=== PATIENT | male | born 1960 | race Caucasian/White ===

== ENCOUNTER 2025-01-16 07:36 | Day surgery (SDC) | payer OTHER, SELFPAY ==
[2025-01-16] VITALS (7 sets, daily range): BP systolic 98–116; BP diastolic 64–82; PULSE 16–65; RESP 16; TEMP 36.5–36.7; O2SAT 94–100; BMI 27.7
--- NOTE | 2025-01-16 08:05 | PCM.PRE.AN2 ---
ASA Classification* ASA Classification ASA Classification: 2 Assessment & Plan Anesthesia* Anesthesia Assessment Anesthesia Assessment: Discussed sedation and/or anesthesia options, risks, benefits, and alternatives with patient/parents/legal guardian/POA. Questions invited. The patient/parents/legal guardian/POA seems to understand and agrees to proceed with anesthesia plan. Reviewed the physical assessment, medical history, allergy history and patient home medications list prior to surgery/procedure/anesthetic and documented any changes. Performed airway and anesthesia risk assessments. 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 When Was Last Pacemaker Check QUESTION #4 FULL TEXT: You/Your Family Experience fever (hyperthermia) with Anesthesia Last Oral Intake Last Oral intake: Last Oral Intake NPO since Meds taken in AM with sips of water? Meds patient instructed to take am of surgery PONV PONV - wood casket assembler: PONV - wood casket assembler Female No 01/13/25 16:45 HX of Motion Sickness No 01/13/25 16:45 HX of N/V After Surgery No 01/13/25 16:45 Non-Smoker Yes 01/13/25 16:45 Duration of Surgery greater No 01/13/25 16:45 than 60 minutes Number of Risk Factors 1 01/13/25 16:45 PONV Score Low Risk 01/13/25 16:45 Respiratory Assessment Respiratory Assessment - wood casket assembler: Respiratory Tract Infection Hx - wood casket assembler Hx Respiratory Tract Infection No 01/13/25 16:45 STOP Sleep Apnea STOP Sleep Apnea - wood casket assembler: STOP Sleep Apnea - wood casket assembler Hx Hypertension Yes: PER PT, CONTROLLED ON 01/13/25 16:45 MEDS Hx Sleep Apnea No 01/13/25 16:45 CPAP BIPAP Do you snore loudly (louder No 01/13/25 16:45 than talking or can be heard Do you often feel tired/ No 01/13/25 16:45 fatigued/ sleepy during daytime? Has anyone observed you stop No 01/13/25 16:45 breathing during sleep? STOP Results Negative 01/13/25 16:45 QUESTION #5 FULL TEXT : Do you snore loudly (louder than talking or can be heard through closed doors)? 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 Specify any problems Hx of Preganancy in last 3 N/A 01/13/25 16:45 Months Nurse Filling Out Transfusion MGRIFFITH 01/13/25 16:45 & Questions: Date: 01/13/25 01/13/25 16:45 Time: 16:47 01/13/25 16:45 Patient unable to answer at this time (ie. confused, unrespo /Reproduction History /Reproductive History - wood casket assembler: /Reproductive Hx- wood casket assembler Hx Now Gestational Age (in weeks): EDC: Hx Hx Para Hx Section SAB Active Medications Active Medications: Current Medications Generic Name Dose Route Start Last Admin Trade Name Freq PRN Reason Stop Dose Admin Lactated Ringer's 1,000 mls @ 15 mls/hr 01/16/25 08:15 IV .Q48H SERENITY PFSH Medical History Wears glasses Heartburn Non-smoker Hypertension Home Medications ?Medication ?Instructions ?Recorded ?Last Taken ?Type amlodipine 10 mg tablet 10 mg PO DAILY 01/13/25 01/15/25 History lisinopril 40 mg tablet 40 mg PO DAILY 01/13/25 01/15/25 History spironolactone 25 mg tablet 25 mg PO DAILY 01/13/25 01/15/25 History Allergy/AdvReac Type Severity Reaction Status Date / Time No Known Allergies Allergy Verified 01/16/25 07:59 Surgical History History of eye surgery History of inguinal hernia repair Social History Smoking Status: Never smoker Review of Systems (Anesthesia) ROS Narrative System reviewed and no additional complaints, except as documented.
[2025-01-16] MEDS: Lactated Ringers 1,000 ML 15 ML IV (08:07)
--- NOTE | 2025-01-16 09:07 | H&P.OPEN ---
HPI - General HPI Narrative KIRIT COMER, is a 64 M who presents for screening colonoscopy. Patient has never had a colonoscopy in the past. He denies abdominal pain or blood in the stool. No family history of colon cancer. PFSH Medical History Wears glasses Heartburn Non-smoker Hypertension Home Medications ?Medication ?Instructions ?Recorded ?Last Taken ?Type amlodipine 10 mg tablet 10 mg PO DAILY 01/13/25 01/15/25 History lisinopril 40 mg tablet 40 mg PO DAILY 01/13/25 01/15/25 History spironolactone 25 mg tablet 25 mg PO DAILY 01/13/25 01/15/25 History Allergy/AdvReac Type Severity Reaction Status Date / Time No Known Allergies Allergy Verified 01/16/25 07:59 Surgical History History of eye surgery History of inguinal hernia repair Social History Smoking Status: Never smoker Past Medical/Surgical History Planned Operation Planned Operative Procedure(s): COLONOSCOPY Previous Hospitalizations/Surgeries HX Hospitalizations: No Any Problems With Anesthesia: No You/Your Family Experience Fever (Hyperthermia) With Anes: No Cholinesterase deficiency: No Cardiovascular Hx Hypertension: Yes (PER PT, CONTROLLED ON MEDS) Respiratory Hx Sleep Apnea: No Hx Respiratory Tract Infection/Cold (presently): No Do You Snore Loudly (louder than talking or can be heard): No Do You Often Feel Tired/ Fatigued/ Sleepy Dring Daytime?: No Has Anyone Observed You Stop Breathing During Sleep?: No Result (for STOP score): Negative Smoking Status: Never smoker Neurological Does patient have nerve stimulator: No Miscellaneous Recent Exposure to Contagious Disease: No Allergies No Known Allergies Allergy (Verified 01/16/25 07:59) Discharge Is Pt Admitted From a Long Term, or a Custodial: No Who Could Help: After D/C, Where Do you Plan to Go: Return Home Vital Signs Vital Signs Vital Signs: 01/16/25 08:03 01/16/25 08:03 Temperature 98.1 F Temperature Source Temporal Pulse Rate 58 L Respiratory Rate 16 Respiratory Pattern Normal Blood Pressure 116/82 H Blood Pressure Mean 93 Blood Pressure Source Monitor Blood Pressure Position Semi-Fowlers Blood Pressure Location Right Arm Pulse Ox 100 Oxygen Delivery Method Room Air Weight Weight: 171 lb 11.841 oz Body Mass Index (BMI) 27.7 Physical Exam Const alert and oriented x3 HEENT normocephalic Eyes PERRL Resp normal respiratory effort and normal air movement Cardio regular rate and regular rhythm GI soft to palpation, non-tender and non-distended Extremity normal to inspection Assessment & Plan Assessment/Plan (1) Screen for colon cancer: PLAN: I explained endoscopy in detail to the patient. I explained the risks including but not limited to stroke or heart attack with anesthesia, perforation of the GI tract, bleeding, infection. I explained that any of these could necessitate further emergency surgery. The patient understands and all questions were answered sufficiently. The patient wishes to proceed with procedure. Zheng Mayfield MD Pager: [facility] [address] [place] [address], [address] [place] [address] Office: Surgery Risks - Colonoscopy Risks Include but are not Limited To: Risks include but are not limited to: Bleeding, perforation requiring further surgery, inability to complete colonoscopy requiring barium enema.
[2025-01-16] MEDS: Lidocaine 1% (5 ml sdv) 5 ML Vial 10 ML IV (09:15)
--- NOTE | 2025-01-16 09:31 | OP.PROVAT_ITS ---
01/16/2025 Trinidad Bernard Md Re : Colonoscopy procedure for Miguel Angel Zavalar Marco Antonio This procedure was performed on Thursday, January 16, 2025. My impressions and recommendations are as follows: Impressions : - The entire examined colon is normal on direct and retroflexion views. - No specimens collected. Recommendations : - Discharge patient to home. - Resume previous diet. - Continue present medications. - Repeat colonoscopy in 10 years for screening purposes. My findings are described in the full procedure note, which is enclosed. If I can be of further assistance, please feel free to contact me at Doctor phone number(s): , Work: . Sincerely, Zheng Mayfield MD 01/16/2025 9:30:19 AM This report has been signed electronically.
--- NOTE | 2025-01-16 09:31 | OP.COLON_ITS ---
Patient Name: Miguel Angel Henderson Procedure Date: 01/16/2025 9:02 AM Date of : 1960 Age: 64 Procedure: Colonoscopy Indications: Screening for colorectal malignant neoplasm Providers: Zheng Mayfield MD Referring MD: Trinidad Bernard Md Medicines: Propofol per Anesthesia Patient Profile: This is a 64 year old male. Refer to note in patient chart for documentation of history and physical. Last Colonoscopy: none. The patient's first colonoscopy is today. Complications: No immediate complications. Procedure: Pre-Anesthesia Assessment: - Prior to the procedure, a History and Physical was performed, and patient medications and allergies were reviewed. The patient's tolerance of previous anesthesia was also reviewed. The risks and benefits of the procedure and the sedation options and risks were discussed with the patient. All questions were answered, and informed consent was obtained. Prior Anticoagulants: The patient has taken no anticoagulant or antiplatelet agents. After reviewing the risks and benefits, the patient was deemed in satisfactory condition to undergo the procedure. After I obtained informed consent, the scope was passed under direct vision. Throughout the procedure, the patient's blood pressure, pulse, and oxygen saturations were monitored continuously. The pediatric colonoscope was introduced through the anus and advanced to the cecum, identified by appendiceal orifice and ileocecal valve. The colonoscopy was performed without difficulty. The patient tolerated the procedure well. The quality of the bowel preparation was good. The ileocecal valve, appendiceal orifice, and rectum were photographed. Scope In: 9:18:00 AM Scope Withdrawal Time 0 hours 6 minutes 30 seconds Scope Out: 9:28:28 AM Total Procedure Duration Time 0 hours 10 minutes 28 seconds Findings: The entire examined colon appeared normal on direct and retroflexion views. Impression: - The entire examined colon is normal on direct and retroflexion views. - No specimens collected. Recommendation: - Discharge patient to home. - Resume previous diet. - Continue present medications. - Repeat colonoscopy in 10 years for screening purposes. Procedure Code(s): --- Professional --- 85173, Colonoscopy, flexible; diagnostic, including collection of specimen(s) by brushing or washing, when performed (separate procedure) Diagnosis Code(s): --- Professional --- Z12.11, Encounter for screening for malignant neoplasm of colon CPT copyright 2021 [employer]. All rights reserved. The codes documented in this report are preliminary and upon air pollution control engineer review may be revised to meet current compliance requirements. Zheng Mayfield MD 01/16/2025 9:30:19 AM This report has been signed electronically. Number of Addenda: 0 Note Initiated On: 01/16/2025 9:02 AM
--- NOTE | 2025-01-16 09:37 | PCM.POST.ANE ---
Anesthesia: Postop Eval I Current Vital Signs Temperature: 97.7 F Pulse Rate: 16 Blood Pressure: 99/68 Respiratory Rate: 16 Pulse Ox: 97 Oxygen Delivery Method: Room Air Assessment Airway patent: Yes Spontaneous unlabored respirations: Yes Mental status: Awake nausea: No Vomiting: No Anesthesia Complication: No Fluid Hydration Crystalloid volume administer (ml): 500 Total IV fluid infused: 500 Progress Note Anesthesia document: Postop Eval 1 completed: Yes
--- NOTE | 2025-01-16 10:04 | POSTOPAN2_ITS ---
Anesthesia Postop Eval I Sum Postop Eval Completion status Anesthesia document: Postop Eval 1 completed: Yes Anesthesia Postop Eval I Summary Anesthesia Postop Eval I Summary: Anesthesia Postop Eval I: Assessment Summary Airway patent Yes 01/16/25 09:38 LAN [email or web address] Spontaneous unlabored Yes 01/16/25 09:38 LAN MANAGER.APAT respirations Mental status Awake 01/16/25 09:38 LAN MANAGER.[email or web address] nausea No 01/16/25 09:38 LAN MANAGER.APAT Vomiting No 01/16/25 09:38 LAN MANAGER.[email or web address] Anesthesia Postop Eval I: Fluid Summary Crystalloid volume administer 500 01/16/25 09:38 LAN MANAGER.[email or web address] (ml) Colloids volume administered ( ml) Blood Product volume administered (ml) Total IV fluid infused 500 01/16/25 09:38 LAN MANAGER.[email or web address] Anesthesia Postop Eval I: Summary Notes Anesthesia Complication No 01/16/25 09:38 LAN MANAGER.[email or web address] Anesthesia Complication Comment: Post-operative progress note Anesthesia: Postop Eval II Evaluation Mental status: Awake Pain Level: 0 nausea: No Vomiting: No
--- NOTE | 2025-01-16 10:04 | PCM.POSTANE2 ---
Anesthesia Postop Eval I Sum Postop Eval Completion status Anesthesia document: Postop Eval 1 completed: Yes Anesthesia Postop Eval I Summary Anesthesia Postop Eval I Summary: Anesthesia Postop Eval I: Assessment Summary Airway patent Yes 01/16/25 09:38 TELECOMMUNICATIONS CABLE JOINTER.[email or web address] Spontaneous unlabored Yes 01/16/25 09:38 TELECOMMUNICATIONS CABLE JOINTER.APAT respirations Mental status Awake 01/16/25 09:38 TELECOMMUNICATIONS CABLE JOINTER.APAT nausea No 01/16/25 09:38 TELECOMMUNICATIONS CABLE JOINTER.APAT Vomiting No 01/16/25 09:38 TELECOMMUNICATIONS CABLE JOINTER.APAT Anesthesia Postop Eval I: Fluid Summary Crystalloid volume administer 500 01/16/25 09:38 TELECOMMUNICATIONS CABLE JOINTER.APAT (ml) Colloids volume administered ( ml) Blood Product volume administered (ml) Total IV fluid infused 500 01/16/25 09:38 TELECOMMUNICATIONS CABLE JOINTER.APAT Anesthesia Postop Eval I: Summary Notes Anesthesia Complication No 01/16/25 09:38 TELECOMMUNICATIONS CABLE JOINTER.APAT Anesthesia Complication Comment: Post-operative progress note Anesthesia: Postop Eval II Evaluation Mental status: Awake Pain Level: 0 nausea: No Vomiting: No
== END 2025-01-16 10:15 | disposition home or self-care (01) ==
LOC: EN 07:37 → AC 07:39
PROVIDERS: PCP Family Medicine; Referring Provider Family Medicine; Visit Provider Surgery
PROC: 0DJD8ZZ Inspection of Lower Intestinal Tract, Via Natural or Artificial Opening Endoscopic (ICD-10-PCS; CPT 45378; principal; 2025-01-16 08:40)
DX: Z12.11 Encounter for screening for malignant neoplasm of colon (principal); I10 Essential (primary) hypertension; Z79.899 Other long term (current) drug therapy
CPT/HCPCS: 45378